=== PATIENT | female | born 1960 | race Hispanic/Latino ===

== ENCOUNTER 2016-04-21 18:48 | Emergency (ER) | payer BC ==
--- NOTE | 2016-04-21 20:03 | Emergency Department Report ---
Chief Complaint: Medical Clearance Stated Complaint: LEFT SIDE OF FACE NUMB Time Seen by Provider: 04/21/16 19:56 - HPI History of Present Illness: 55-year-old female comes in with complaint of numbness to the left side of her face. Patient states she woke up this morning to the left side of her face feeling numb. Patient reports yesterday she thought she had a day and she took Motrin and that took the pain away later on that night pain return she didn't take Motrin and use Orajel about 2 hours for the Motrin ease up the pain pain never went away patient also complains of left-sided temporal pain. Patient pushes a past medical history of diabetes and hypercholesterolemia - Exam Vital Signs: Vital Signs 04/21/16 19:10 Temperature 98.4 F Pulse Rate 84 Respiratory 16 Rate Blood Pressure 139/78 O2 Sat by Pulse 97 Oximetry Physical Exam: Patient's alert and oriented 3. Neuro protrusion of tongue intact, tongue deviation to the right left intact puffing out cheeks and intact able to close eyes A prevent provider for open them. 2 point discrimination face intact MSE screening note: Focused history and physical exam performed. Due to findings the following was ordered: Evaluated by this provider appropriate labs were ordered should be evaluated further in the back of the ER by the physician's ED Disposition for MSE Condition: Stable
[2016-04-21 20:41] LABS: Basophils % (Auto) 0.6 % (0.0-1.8); Hematocrit 41.1 % (30.3-42.9); Hemoglobin 14.2 gm/dl (10.1-14.3); Mean Corpuscular HGB Conc 35 % (30-34); Mean Corpuscular Hemoglobin 30 pg (28-32); Mean Corpuscular Volume 88 fl (79-97); Platelet Count 285 K/mm3 (140-440); Red Blood Count 4.68 M/mm3 (3.65-5.03); Red Cell Distribution Width 13.3 % (13.2-15.2); White Blood Count 8.7 K/mm3 (4.5-11.0)
[2016-04-21 21:00] LABS: Blood Urea Nitrogen 9 mg/dL (7-17); Carbon Dioxide 29 mmol/L (22-30); Chloride 101.1 mmol/L (98-107); Glucose 161 mg/dL (65-100); Potassium 4.8 mmol/L (3.6-5.0); Sodium 142 mmol/L (137-145)
[2016-04-21 21:15] LABS: Anion Gap 17 mmol/L
--- NOTE | 2016-04-22 01:47 | Emergency Department Report ---
HPI - General Chief Complaint: Medical Clearance Time Seen by Provider: 04/21/16 19:56 - HPI HPI: This is a 55-year-old female who presents to the emergency department with the complaint of left-sided facial paresthesias since last night, about 24 hours. It started off more his pain to the left side of the face and felt like a toothache but then it became slightly numb and felt like a pins and needle sensation. She denies any vision change, slurred speech, trouble moving, walking or any other neurological deficits. Patient denies any dizziness, chest pain, shortness of breath. She is not taken anything for symptoms prior to presentation. Her primary care doctor is Dr. Bucio and when she called their office she was told to come to the emergency department for a CT scan of the head. She has a history of non-insulin dependent diabetes and high cholesterol. She denies any history of OH, CVA, PE/DVT. ED Past Medical Hx - Past Medical History Previous Medical History?: Yes Hx Diabetes: Yes - Surgical History Past Surgical History?: Yes Additional Surgical History: 2 - Social History Smoking Status: Never Smoker Substance Use Type: None - Medications Home Medications: Home Medications Medication Instructions Recorded Confirmed Last Taken Type Unobtainable 04/22/16 04/22/16 Unknown History ED Review of Systems ROS: Stated complaint: LEFT SIDE OF FACE NUMB Other details as noted in HPI Comment: All other systems reviewed and negative Constitutional: denies: chills, fever Eyes: denies: eye pain, eye discharge, vision change ENT: denies: ear pain, throat pain Respiratory: denies: cough, shortness of breath, wheezing Cardiovascular: denies: chest pain, palpitations Gastrointestinal: denies: abdominal pain, nausea, diarrhea Genitourinary: denies: urgency, dysuria, discharge Musculoskeletal: denies: back pain, joint swelling, arthralgia Skin: denies: rash, lesions Neurological: numbness, paresthesias. denies: weakness Physical Exam - Physical Exam Vital Signs: Vital Signs 04/21/16 04/22/16 04/22/16 19:10 01:15 01:38 Temperature 98.4 F 97.6 F Pulse Rate 84 97 H Respiratory 16 20 20 Rate Blood Pressure 139/78 Blood Pressure 120/59 [Left] O2 Sat by Pulse 97 98 98 Oximetry Physical Exam: GENERAL: The patient is well-developed well-nourished. HEENT: Normocephalic. Atraumatic. Extraocular motions are intact. Patient has moist mucous membranes. Pupils equal reactive to light bilaterally. No nystagmus. No facial asymmetry. Tongue is midline. NECK: Supple. Trachea is midline. CHEST/LUNGS: Clear to auscultation. There is no respiratory distress noted. HEART/CARDIOVASCULAR: Regular. There is no tachycardia. There is no gallop rub or murmur. ABDOMEN: Abdomen is soft, nontender. Patient has normal bowel sounds. There is no abdominal distention. SKIN: There is no rash. There is no edema. There is no diaphoresis. NEURO: The patient is awake, alert, and oriented. The patient is cooperative. The patient has no focal neurologic deficits. The patient has normal speech and gait. Cranial nerves II through XII grossly intact. No pronator drift. No dysmetria. MUSCULOSKELETAL: There is no tenderness or deformity. There is no limitation range of motion. There is no evidence of acute injury. Muscle strength 5 out of 5 for upper and lower extremities bilaterally. ED Course Vital Signs 04/21/16 04/22/16 04/22/16 19:10 01:15 01:38 Temperature 98.4 F 97.6 F Pulse Rate 84 97 H Respiratory 16 20 20 Rate Blood Pressure 139/78 Blood Pressure 120/59 [Left] O2 Sat by Pulse 97 98 98 Oximetry ED Medical Decision Making - Lab Data Result diagrams: 04/21/16 20:24 04/21/16 20:24 - EKG Data -: EKG Interpreted by [facility] EKG shows normal: sinus rhythm, axis, intervals, QRS complexes, ST-T waves Rate: normal - EKG Data When compared to previous EKG there are: previous EKG unavailable Interpretation: normal EKG - Radiology Data Radiology results: report reviewed CT of the head does not show any acute process including no hemorrhage, mass, shift, diffuse edema or skull fracture. - Medical Decision Making 55-year-old female presents with about a 24-hour history of some left-sided facial numbness and/or paresthesias. She does not have any focal or motor deficits. A CT of the head was done that does not show any bleed, shift, mass, ischemic changes or any acute process. The rest the patient's labs are unremarkable as well including no signs of leukocytosis, electrolyte abnormalities, renal insufficiency, glucose abnormalities. Patient has a negative troponin and normal thyroid function. Patient seen ambulatory in the emergency department and appears stable. EKG is normal without any ST elevation OH, ischemia or dysrhythmia. Patient's symptoms appear more consistent with paresthesias than true numbness. Patient would be a 0-1 on the NIH stroke scale depending on whether her symptoms are numbness or paresthesias. Patient was given an aspirin after a CT of the head was negative. Patient appears safe for discharge home but has been encouraged to follow-up with her primary care doctor in the next few days without fail. She will return to the ER with any worsening or symptoms, development of slurred speech, vision change, motor or focal deficits. She understands and agrees the plan. - Differential Diagnosis CVA, TIA, paresthesias, bells palsy Critical Care Time: No Critical care attestation.: If time is entered above; I have spent that time in minutes in the direct care of this critically ill patient, excluding procedure time. ED Disposition Clinical Impression: Facial paresthesia, Numbness of face Disposition: DISCHARGED TO HOME OR SELFCARE Is pt being admited?: No Does the pt Need Aspirin: No Condition: Stable Instructions: Paresthesia (ED) Additional Instructions: Please follow-up with your primary care doctor in the next few days without fail. Return to the emergency department with any worsening of her symptoms, slurred speech, vision change, trouble with movement/walking, any acute neurological deficits, or any acute distress. Referrals: POLO BUCIO MD [Staff Physician] - [facility] Time of Disposition: 03:43
--- NOTE | 2016-04-22 02:27 | Cat Scan Report ---
FINAL REPORT PROCEDURE: CT HEAD/BRAIN WO CON TECHNIQUE: Computerized tomography of the head was performed without contrast material. HISTORY: Facial numbness / paresthesias COMPARISON: No prior studies are available for comparison. FINDINGS: Skull and scalp: Normal. Paranasal sinuses: Normal. Ventricles and subarachnoid spaces: Normal. Cerebrum: No evidence of hemorrhage, acute infarction or mass . Cerebellum and brainstem: No evidence of hemorrhage, acute infarction or mass. Vasculature: Normal. Comments: None. IMPRESSION: Normal Examination
[2016-04-22] MEDS ORDERED: BABY ASPIRIN PO ONE (02:41)
[2016-04-22 04:14] VITALS: BP 107/51
== END 2016-04-22 03:50 | disposition home or self-care (01) ==
LOC: ED 18:48
DX: R20.9 Unspecified disturbances of skin sensation (principal); R20.0 Anesthesia of skin; E11.9 Type 2 diabetes mellitus without complications
CPT/HCPCS: 36415; 70450; 80048; 82962; 84443; 84484; 85025; 93005; 93010